=== PATIENT | female | born 2005 | race Caucasian/White ===

== ENCOUNTER 2023-09-27 03:45 | Emergency (ER) | payer OTHER ==
[~2023-09-27] VITALS: Ht 149.9 cm; Wt 63.6 kg
[2023-09-27 08:06] VITALS: BP 130/72; TEMP 98.5; O2SAT 99
== END 2023-09-27 08:08 | disposition home or self-care (01) ==
LOC: M ED 03:45
DX: S92.912A Unspecified fracture of left toe(s), initial encounter for closed fracture (principal)

== ENCOUNTER 2023-11-01 10:22 | Emergency (ER) | payer OTHER ==
[~2023-11-01] VITALS: Ht 149.9 cm; Wt 64.3 kg
[2023-11-01] MEDS ORDERED: AMOXICILLIN 500 MG CAP PO ONE (11:10)
[2023-11-01] MEDS ORDERED: IBUPROFEN 600MG TAB PO ONE (11:10)
[2023-11-01] MEDS ORDERED: NS 1,000 ML IV ONE (11:25)
[2023-11-01 11:54] LABS: RSV AMPLIFICATION NEGATIVE (NEGATIVE)
[2023-11-01] MEDS ORDERED: ISOVUE-370 76% 100ML VIAL As Ordered ONE (12:34)
[2023-11-01 13:53] LABS: BASO # 0.1 10^3/uL (0.0-0.2); BASO % 0.3 % (0.0-1.0); EOS % 0.2 % (0.0-3.0); HEMATOCRIT 37.4 % (36.0-47.0); HEMOGLOBIN 12.5 g/dl (12.0-15.5); LYMPH # 1.1 10^3/uL (1.5-5.0); LYMPH % 5.7 % (24.0-44.0); MEAN CORPUSCULAR HEMOGLOBIN 30.6 pg (27.0-33.0); MEAN CORPUSCULAR HGB CONC 33.4 g/dl (32.0-36.5); MEAN CORPUSCULAR VOLUME 91.7 fl (80.0-96.0); MONO % 8.5 % (2.0-8.0); NEUTROPHILS # 16.9 10^3/uL (1.5-8.5); NEUTROPHILS % 84.3 % (36.0-66.0); PLATELET COUNT, AUTOMATED 247 10^3/uL (150-450); RED BLOOD COUNT 4.08 10^6/uL (4.00-5.40)
[2023-11-01 13:58] LABS: MONO # 1.7 10^3/uL (0.0-0.8)
[2023-11-01 14:01] VITALS: BP 128/82; TEMP 98.7; O2SAT 97
[2023-11-01] MEDS ORDERED: ACETAMINOPHEN 500 MG TAB PO ONE (14:10)
[2023-11-01] MEDS ORDERED: IBUP-1022 PO (14:14)
[2023-11-01] MEDS ORDERED: AMOX500C PO (14:14)
== END 2023-11-01 14:26 | disposition home or self-care (01) ==
LOC: M ED 10:22
DX: J03.00 Acute streptococcal tonsillitis, unspecified (principal); Z79.2 Long term (current) use of antibiotics; Z79.1 Long term (current) use of non-steroidal anti-inflammatories (NSAID)
CPT/HCPCS: 70491; 80047; 84702; 85025; 87631; 87880; 96360; 99284; Q9967

== ENCOUNTER → 2023-11-19 | Outpatient (CLI) | payer OTHER ==
[~2023-11-19] MED LIST: AMOX500C PO; IBUP-1022 PO
== END ==
LOC: M RAD 12:34
PROVIDERS: ATTEND Obstetrics & Gynecology
DX: N83.292 Other ovarian cyst, left side (principal); R18.8 Other ascites; N97.9 Female infertility, unspecified

== ENCOUNTER 2024-03-23 09:05 | Emergency (ER) | payer OTHER ==
[~2024-03-23] VITALS: Ht 177.8 cm; Wt 66.5 kg
[2024-03-23] MEDS ORDERED: PRENTAB9 (09:20)
[2024-03-23 12:19] VITALS: BP 114/61; TEMP 97.3; O2SAT 95
== END 2024-03-23 12:23 | disposition home or self-care (01) ==
LOC: M ED 09:05
DX: O98.511 Other viral diseases complicating pregnancy, first trimester (principal); O26.891 Other specified pregnancy related conditions, first trimester; H92.01 Otalgia, right ear; Z3A.00 Weeks of gestation of pregnancy not specified; Z79.899 Other long term (current) drug therapy